=== PATIENT | female | born 1970 | race Caucasian/White ===

== ENCOUNTER 2017-02-12 09:27 | Emergency (ER) | payer OTHER ==
[~2017-02-12] VITALS: Ht 162.6 cm; Wt 72.6 kg
[2017-02-12] MEDS ORDERED: REQUIP5 MG PO (09:52)
[2017-02-12] MEDS ORDERED: PRILOSEC OTC20 MG PO (09:52)
[2017-02-12] MEDS ORDERED: ONDANSETRON ODT4 MG SL (13:09)
== END 2017-02-12 13:59 | disposition home or self-care (01) ==
LOC: ED 09:27
DX: R51 Headache (principal); R11.0 Nausea; Z88.0 Allergy status to penicillin; Z79.899 Other long term (current) drug therapy
CPT/HCPCS: 70450; 80048; 81001; 85025; 85651; 96361; 96374; 96375; 99284; J1885; J2405; J7030